=== PATIENT | female | born 1990 | race Hispanic/Latino ===

== ENCOUNTER 2024-02-20 04:45 | Day surgery (SDC) | payer OTHER ==
[2024-02-20 05:19] VITALS: BMI 51.3
== END 2024-02-20 06:44 | disposition home or self-care (01) ==
LOC: CSHLD/OP 04:45
PROVIDERS: ATTEND Family Medicine
DX: O99.891 Other specified diseases and conditions complicating pregnancy (principal); R10.2 Pelvic and perineal pain; O09.812 Supervision of pregnancy resulting from assisted reproductive technology, second trimester; O99.112 Other diseases of the blood and blood-forming organs and certain disorders involving the immune mechanism complicating pregnancy, second trimester; D68.9 Coagulation defect, unspecified; Z79.01 Long term (current) use of anticoagulants; Z79.899 Other long term (current) drug therapy; Z3A.24 24 weeks gestation of pregnancy

== ENCOUNTER 2024-05-27 13:39 | Inpatient (IN) | payer MEDICAID, OTHER, SELFPAY ==
[2024-05-27 21:10] VITALS: BMI 49.8
[2024-05-27] MEDS ORDERED: fentaNYL 50 mcg/mL 1 mL Vial SLOW IVP PRN (22:53)
[2024-05-27] MEDS ORDERED: Acetaminophen 500 MG TAB PO PRN (22:53)
[2024-05-27] MEDS ORDERED: Promethazine HCl 25 MG/ML VIAL IM PRN (22:53)
[2024-05-27] MEDS ORDERED: Carboprost 250 MCG/ML AMP IM PRN (22:53)
[2024-05-27] MEDS ORDERED: Tranexamic Acid 1,000 MG/10 ML VIAL IVP PRN (22:53)
[2024-05-27] MEDS ORDERED: Lidocaine 1% (PF) 30 ML VIAL SC PRN (22:53)
[2024-05-27] MEDS ORDERED: HYDROcodone/Acetaminophen 5/325 mg Tablet PO PRN (22:58)
[2024-05-27] MEDS ORDERED: Ibuprofen 800 MG TAB PO PRN (22:58)
[2024-05-27] MEDS: Lactated Ringer's 1,000 ML IV SCH (23:00)
[2024-05-27] MEDS ORDERED: Oxytocin 30 units/NS 500 ML 500 ML IV SCH ×2 (23:00)
[2024-05-27 23:11] LABS: Hematocrit 31.9 % (34.9-44.5); Hemoglobin 10.9 g/dL (12.0-15.5); Mean Corpuscular HGB CONC 34.2 g/dL (32.0-36.0); Mean Corpuscular Hemoglobin 28.2 pg (27.0-33.0); Mean Corpuscular Volume 82.4 fL (81.6-98.3); Mean Platelet Volume 10.7 fL (7.4-10.4); Platelet Count 254 10x3/uL (150-450); RBC Distribution Width 14.1 % (11.5-14.5); Red Blood Cell (RBC) Count 3.87 10x6/uL (3.90-5.03); White Blood Cell (WBC) Count 10.6 10x3/uL (3.5-10.5)
[2024-05-27 23:24] LABS: ALT (SGPT) 59 U/L (8-55); AST (SGOT) 36 U/L (5-34); Albumin 2.6 g/dL (3.5-5.0); Alkaline Phosphatase 198 U/L (40-110); Anion Gap 15 mmol/L (10-20); BUN (Urea Nitrogen) 15 mg/dL (7.0-18.7); Bilirubin, Total 0.4 mg/dL (0.2-1.2); Calc. Creatinine Clearance 203 mL/min (70-130); Calcium 8.9 mg/dL (7.8-10.44); Carbon Dioxide 17 mmol/L (22-29); Chloride 108 mmol/L (98-107); Estimated GFR 113; Globulin 3.2 g/dL (2.4-3.5); Glucose 69 mg/dL (70-105); Potassium 4.8 mmol/L (3.5-5.1); Protein, Total 5.8 g/dL (6.0-8.3); Sodium 135 mmol/L (136-145)
[2024-05-27 23:42] LABS: HBsAg Index 0.19 S/CO (0-0.99); Hep B Surf Ag - L&D Non-Reactive S/CO (NonReactive); Syphilis Antibody Nonreactive (Nonreactive); Syphilis Antibody Index 0.05 S/CO (<1.00 Non-Reactive)
[2024-05-27 23:50] LABS: Creatinine, Urine 77.9 mg/dL (47-110)
[2024-05-28] MEDS: Misoprostol 100 MCG TAB VAG SCH (00:15)
[2024-05-28] MEDS: Penicillin G Potassium 5 MILL.UNITS in Sodium Chloride 0.9% 100 ML IVPB SCH (00:21)
[2024-05-28] MEDS: Penicillin G 2.5 MILL.units 2.5 MILL.UNITS in Premix 1 BAG IVPB SCH (05:05)
[2024-05-28] MEDS: hydrALAZINE 20 MG/ML VIAL SLOW IVP PRN (05:20)
[2024-05-28] MEDS ORDERED: Calcium Gluc 4.6 MEQ/10 ML (100 MG/ML) SLOW IVP PRN ×2 (05:30→07:50)
[2024-05-28] MEDS ORDERED: Lorazepam 2 MG/ML VIAL SLOW IVP PRN ×2 (05:30→07:50)
[2024-05-28] MEDS: Magnesium Sulfate 20 gm/500 ml 20 GM/500 ML BAG IVPB SCH (05:43)
[2024-05-28 06:03] LABS: #Basophils 0.03 10x3/uL (0.0-0.2); #Eosinphils 0.07 10x3/uL (0.0-0.5); #Monocytes 0.58 10x3/uL (0.0-1.1); #Neutrophils 7.02 10x3/uL (1.5-8.4); %Basophils 0.3 % (0.0-2.0); %Eosinophils 0.7 % (0.0-6.0); %Lymphocytes 17.9 % (18.0-47.0); %Monocytes 6.2 % (0.0-10.0); %Neutrophils 74.6 % (40.0-75.0); Hematocrit 30.7 % (34.9-44.5); Hemoglobin 10.4 g/dL (12.0-15.5); Mean Corpuscular HGB CONC 33.9 g/dL (32.0-36.0); Mean Corpuscular Volume 82.5 fL (81.6-98.3); Mean Platelet Volume 9.7 fL (7.4-10.4); Platelet Count 211 10x3/uL (150-450); RBC Distribution Width 14.2 % (11.5-14.5); Red Blood Cell (RBC) Count 3.72 10x6/uL (3.90-5.03); White Blood Cell (WBC) Count 9.4 10x3/uL (3.5-10.5)
[2024-05-28 06:16] LABS: ALT (SGPT) 54 U/L (8-55); AST (SGOT) 34 U/L (5-34); Albumin 2.4 g/dL (3.5-5.0); Alkaline Phosphatase 169 U/L (40-110); Anion Gap 13 mmol/L (10-20); BUN (Urea Nitrogen) 11 mg/dL (7.0-18.7); Bilirubin, Total 0.6 mg/dL (0.2-1.2); Calc. Creatinine Clearance 228 mL/min (70-130); Calcium 8.7 mg/dL (7.8-10.44); Carbon Dioxide 17 mmol/L (22-29); Chloride 110 mmol/L (98-107); Estimated GFR 120; Globulin 3.5 g/dL (2.4-3.5); Glucose 68 mg/dL (70-105); Potassium 4.3 mmol/L (3.5-5.1); Protein, Total 5.9 g/dL (6.0-8.3); Sodium 136 mmol/L (136-145)
[2024-05-28] MEDS ORDERED: Labetalol HCl 100 MG/20 ML VIAL SLOW IVP PRN ×2 (07:50)
[2024-05-28] MEDS: fentaNYL/Ropivacaine Epidural 100 ML ONE (11:07)
[2024-05-28] MEDS ORDERED: Moisturizing Cream (Eucerin) 113 GM JAR TOP PRN (11:36)
[2024-05-28] MEDS ORDERED: Naloxone HCl 0.4 mg/ml Vial IVP PRN ×2 (11:36)
[2024-05-28] MEDS ORDERED: diphenhydrAMINE 50 MG/ML VIAL IVP PRN (11:36)
[2024-05-28] MEDS ORDERED: Ondansetron PF 4 MG/2 ML Vial IVP PRN (11:36)
[2024-05-28] MEDS ORDERED: Lactated Ringer's 500 ML IV PRN (11:36)
[2024-05-28] MEDS ORDERED: Promethazine HCl 25 MG/ML VIAL IM PRN (11:36)
[2024-05-28] MEDS ORDERED: Acetaminophen 325 MG TAB PO PRN (11:36)
[2024-05-28] MEDS ORDERED: ePHEDrine Sulfate 50 MG/10 ML VIAL SLOW IVP PRN (11:36)
[2024-05-28] MEDS ORDERED: Communication Order-Pharmacy FS SCH (11:45)
[2024-05-28] MEDS: Labetalol HCl 100 MG TAB PO SCH (18:13)
[2024-05-28] MEDS: Ondansetron PF 4 MG/2 ML Vial IVP PRN (22:03)
[2024-05-28] MEDS: fentaNYL 2 mcg/Ropivacaine 0.2% Epidural 100 ML CADD EPIDURAL SCH (23:43)
[2024-05-29] MEDS: Misoprostol 100 MCG TAB VAG SCH (00:02)
[2024-05-29] MEDS: Oxytocin 30 units/NS 500 ML 500 ML IV SCH (08:39)
[2024-05-29] MEDS ORDERED: Moisturizing Cream (Eucerin) 113 GM JAR TOP PRN (20:30)
[2024-05-29] MEDS ORDERED: Promethazine HCl 25 MG/ML VIAL IM PRN ×2 (20:30→21:59)
[2024-05-29] MEDS ORDERED: Morphine 4 MG/ML VIAL SLOW IVP PRN (20:30)
[2024-05-29] MEDS ORDERED: fentaNYL 50 mcg/mL 1 mL Vial SLOW IVP PRN (20:30)
[2024-05-29] MEDS ORDERED: Ketorolac Tromethamine 30 MG (1 mL) VIAL IVP SCH (20:30)
[2024-05-29] MEDS ORDERED: Ondansetron PF 4 MG/2 ML Vial IVP PRN ×2 (20:30)
[2024-05-29] MEDS ORDERED: Ketorolac Tromethamine 30 MG (1 mL) VIAL IVP PRN (20:30)
[2024-05-29] MEDS ORDERED: Meperidine HCl/PF 25 MG (1 mL) VIAL SLOW IVP PRN (20:30)
[2024-05-29] MEDS ORDERED: Communication Order-Pharmacy FS SCH (20:30)
[2024-05-29] MEDS ORDERED: Naloxone HCl 0.4 mg/ml Vial IV PRN (20:30)
[2024-05-29] MEDS ORDERED: diphenhydrAMINE 50 MG/ML VIAL IVP PRN (20:30)
[2024-05-29] MEDS ORDERED: Naloxone HCl 0.4 mg/ml Vial IVP PRN ×2 (20:30)
[2024-05-29] MEDS: Diphenoxylate HCl/Atropine Tablet PO PRN (20:36)
[2024-05-29] MEDS: Misoprostol 200 MCG TAB PR PRN (20:36)
[2024-05-29] MEDS: hydrALAZINE 20 MG/ML VIAL SLOW IVP PRN ×2 (21:10→21:35)
[2024-05-29] MEDS: CEFAZOLIN 2 GM VIAL ONE (21:48)
[2024-05-29] MEDS: Azithromycin 500 MG VIAL ONE (21:48)
[2024-05-29] MEDS: Carboprost 250 MCG/ML AMP ONE ×3 (21:49→21:50)
[2024-05-29] MEDS: Tranexamic Acid 1,000 MG/10 ML VIAL ONE ×2 (21:49→21:50)
[2024-05-29] MEDS: Morphine PF 10 MG/10 ML VIAL ONE (21:49)
[2024-05-29] MEDS: Oxytocin 10 UNITS/ML VIAL ONE ×2 (21:49→21:50)
[2024-05-29] MEDS: Misoprostol 200 MCG TAB ONE (21:49)
[2024-05-29] MEDS: Ondansetron PF 4 MG/2 ML Vial ONE (21:49)
[2024-05-29] MEDS: Dexamethasone 10 MG/ML VIAL ONE (21:49)
[2024-05-29] MEDS: PHENYLEPHRINE-NS 100 MCG/ML 10 ML SYRINGE ONE ×3 (21:50)
[2024-05-29] MEDS ORDERED: Bisacodyl 10 MG SUPP PR PRN (21:59)
[2024-05-29] MEDS ORDERED: Lanolin Ointment 7 GM TUBE TOP PRN (21:59)
[2024-05-29] MEDS ORDERED: Diphenoxylate HCl/Atropine Tablet PO PRN (21:59)
[2024-05-29] MEDS ORDERED: diphenhydrAMINE 25 MG CAP PO PRN (21:59)
[2024-05-29] MEDS ORDERED: Labetalol HCl 100 MG/20 ML VIAL SLOW IVP PRN (21:59)
[2024-05-29] MEDS ORDERED: Simethicone Chewable 80 MG TAB PO PRN (21:59)
[2024-05-29] MEDS ORDERED: Lorazepam 2 MG/ML VIAL SLOW IVP PRN (21:59)
[2024-05-29] MEDS ORDERED: hydrALAZINE 20 MG/ML VIAL SLOW IVP PRN ×2 (21:59)
[2024-05-29] MEDS: Boostrix 0.5 ML (Tdap) VIAL (>/=7 yrs of age) IM ONE (23:40)
[2024-05-29] MEDS: Ferrous Sulfate 325 MG TAB PO SCH (23:40)
[2024-05-29] MEDS: Docusate 100 MG CAP PO SCH (23:40)
[2024-05-30] MEDS: Ketorolac Tromethamine 30 MG (1 mL) VIAL IVP SCH (03:06)
[2024-05-30 04:52] LABS: Hematocrit 26.7 % (34.9-44.5); Hemoglobin 8.6 g/dL (12.0-15.5); Mean Corpuscular HGB CONC 32.2 g/dL (32.0-36.0); Mean Corpuscular Hemoglobin 27.7 pg (27.0-33.0); Mean Corpuscular Volume 86.1 fL (81.6-98.3); Mean Platelet Volume 9.6 fL (7.4-10.4); Platelet Count 190 10x3/uL (150-450); RBC Distribution Width 14.6 % (11.5-14.5); White Blood Cell (WBC) Count 13.7 10x3/uL (3.5-10.5)
[2024-05-30] MEDS: Ferrous Sulfate 325 MG TAB PO SCH (07:52)
[2024-05-30] MEDS ORDERED: Meperidine HCl/PF 25 MG (1 mL) VIAL IM PRN (08:30)
[2024-05-30] MEDS: Docusate 100 MG CAP PO SCH (08:37)
[2024-05-30] MEDS: Enoxaparin 40 MG (0.4 mL) SYRINGE SC SCH (08:37)
[2024-05-30] MEDS: Ondansetron PF 4 MG/2 ML Vial IVP PRN (11:55)
[2024-05-30 12:45] LABS: Critical Call Chemistry NUR.SAB@1245
[2024-05-30] MEDS: Prenatal Vitamin 1 TAB PO SCH (17:56)
[2024-05-30] MEDS: HYDROcodone/Acetaminophen 5/325 mg Tablet PO PRN (17:57)
[2024-05-30] MEDS: Ibuprofen 800 MG TAB PO SCH (21:49)
[2024-06-01 05:04] VITALS: TEMP 98.3
[2024-06-01] MEDS: HYDROcodone/Acetaminophen 5/325 mg Tablet PO PRN (08:25)
[2024-06-01 08:26] VITALS: BP 143/78
== END 2024-06-01 14:15 | disposition home or self-care (01) | DRG 787 ==
LOC: CSHLD 20:36 → CSHPED 05-30 16:20
PROVIDERS: ADMIT Family Medicine; ATTEND Family Medicine
PROC: 3E0P7VZ Introduction of Hormone into Female Reproductive, Via Natural or Artificial Opening (ICD-10-PCS; 2024-05-27)
PROC: 10907ZC Drainage of Amniotic Fluid, Therapeutic from Products of Conception, Via Natural or Artificial Opening (ICD-10-PCS; 2024-05-27)
PROC: 10H07YZ Insertion of Other Device into Products of Conception, Via Natural or Artificial Opening (ICD-10-PCS; 2024-05-27)
PROC: 10D00Z1 Extraction of Products of Conception, Low, Open Approach (ICD-10-PCS; principal; 2024-05-29)
DX: O14.14 Severe pre-eclampsia complicating childbirth (principal); O99.12 Other diseases of the blood and blood-forming organs and certain disorders involving the immune mechanism complicating childbirth; O99.214 Obesity complicating childbirth; O99.824 Streptococcus B carrier state complicating childbirth; O62.1 Secondary uterine inertia; Z3A.38 38 weeks gestation of pregnancy; Z37.0 Single live birth; O69.81X0 Labor and delivery complicated by cord around neck, without compression, not applicable or unspecified
CPT/HCPCS: 36415; 51702; 80053; 82570; 83735; 84156; 85025; 85027; 86780; 86850; 86900; 86901; 87340; J0360; J1100; J1650; J1885; J2274; J2405; J2540; J2590; J3475; J3490; J7120

== ENCOUNTER 2024-06-06 22:37 | Observation (INO) | payer MEDICAID ==
[2024-06-06] MEDS ORDERED: Magnesium 2 GM/50 ML BAG (IN WATER) ONE (23:10)
[2024-06-06] MEDS ORDERED: Furosemide 40 MG (4 mL) VIAL ONE (23:10)
[2024-06-06 23:25] LABS: #Basophils 0.05 10x3/uL (0.0-0.2); #Eosinphils 0.14 10x3/uL (0.0-0.5); #Monocytes 0.39 10x3/uL (0.0-1.1); #Neutrophils 4.72 10x3/uL (1.5-8.4); %Basophils 0.7 % (0.0-2.0); %Lymphocytes 22.8 % (18.0-47.0); %Monocytes 5.6 % (0.0-10.0); %Neutrophils 67.6 % (40.0-75.0); Hematocrit 25.5 % (34.9-44.5); Hemoglobin 8.2 g/dL (12.0-15.5); Mean Corpuscular HGB CONC 32.2 g/dL (32.0-36.0); Mean Corpuscular Hemoglobin 28.3 pg (27.0-33.0); Mean Corpuscular Volume 87.9 fL (81.6-98.3); Mean Platelet Volume 8.6 fL (7.4-10.4); Platelet Count 378 10x3/uL (150-450); RBC Distribution Width 15.5 % (11.5-14.5)
[2024-06-06 23:39] LABS: ALT (SGPT) 35 U/L (8-55); AST (SGOT) 18 U/L (5-34); Albumin 3.1 g/dL (3.5-5.0); Alkaline Phosphatase 112 U/L (40-110); Anion Gap 14 mmol/L (10-20); BUN (Urea Nitrogen) 12 mg/dL (7.0-18.7); Bilirubin, Total 0.5 mg/dL (0.2-1.2); Calc. Creatinine Clearance 0 mL/min (70-130); Calcium 9.4 mg/dL (7.8-10.44); Carbon Dioxide 20 mmol/L (22-29); Chloride 110 mmol/L (98-107); Estimated GFR 117; Glucose 86 mg/dL (70-105); Lipase 34 U/L (8-78); Potassium 4.3 mmol/L (3.5-5.1); Protein, Total 6.1 g/dL (6.0-8.3); Sodium 140 mmol/L (136-145)
[2024-06-06 23:42] LABS: Troponin I Less than 0.010 ng/mL (< 0.028)
[2024-06-06] MEDS ORDERED: hydrALAZINE 20 MG/ML VIAL SLOW IVP PRN (23:53)
[2024-06-07] MEDS: Enoxaparin 40 MG (0.4 mL) SYRINGE SC SCH (01:07)
== END 2024-06-07 01:48 | disposition home or self-care (01) ==
LOC: CSHERS 22:37 → CSHLD/OP 23:56 → CSHLD 06-07 00:15
PROVIDERS: ADMIT Obstetrics & Gynecology; ATTEND Obstetrics & Gynecology
DX: O99.893 Other specified diseases and conditions complicating puerperium (principal); R03.0 Elevated blood-pressure reading, without diagnosis of hypertension; O99.13 Other diseases of the blood and blood-forming organs and certain disorders involving the immune mechanism complicating the puerperium; R60.0 Localized edema; D68.59 Other primary thrombophilia; R51.9 Headache, unspecified; O99.215 Obesity complicating the puerperium; E66.01 Morbid (severe) obesity due to excess calories; O99.285 Endocrine, nutritional and metabolic diseases complicating the puerperium; E28.2 Polycystic ovarian syndrome; O16.5 Unspecified maternal hypertension, complicating the puerperium; O90.81 Anemia of the puerperium; Z79.899 Other long term (current) drug therapy; Z98.890 Other specified postprocedural states
CPT/HCPCS: 71045; 80053; 83690; 83880; 84484; 85025; 93005; 93970; 96372; 96374; 96375; 99282; G0378; J1650; J1940; J3475